=== PATIENT | female | born 1955 | race Two or more races ===

== ENCOUNTER 2017-11-28 07:31 | Outpatient (CLI) | payer OTHER ==
[~2017-11-28 07:31] MED LIST: ALLEGRA ALLERG180 MG PO; BENADRYL 25 MG PO; COUMAdin PO; Colace 100MG PO; DECADRON PO; ELAVIL PO; GILTUSS TR TAB1 EACH PO; NEURONTIN PO; NEURONTIN600 MG; NUCYNTA ER100 MG; ORPH100T PO; OSCAL D PO; OXYC1TAB9 PO; OXYCODONE HCL10 M1 PO; OXYCONTIN 20 MG PO; Protonix PO; RESTORIL15 MG; REVLIMID20 MG; SECTRAL200 MG; SYNTHROID112 MCG PO; TRAM1TAB98 PO; Temazepam PO; ZITHROMAX500 MG PO; [UNRECOGNIZED DRUG - OTHER] BC
== END 2017-11-28 07:36 | disposition home or self-care (01) ==
LOC: MRI 07:31
DX: C90.02 Multiple myeloma in relapse (principal); I95.1 Orthostatic hypotension; G90.3 Multi-system degeneration of the autonomic nervous system
CPT/HCPCS: 70553

== ENCOUNTER 2017-12-06 09:13 | Outpatient (CLI) | payer OTHER | END 2017-12-06 09:26 | disposition home or self-care (01) | LOC: SONOGRAMA 09:13 | DX: E89.0 Postprocedural hypothyroidism (principal); E04.1 Nontoxic single thyroid nodule ==

== ENCOUNTER 2018-07-05 07:28 | Outpatient (CLI) | payer OTHER | END 2018-07-05 07:39 | disposition home or self-care (01) | LOC: SONOGRAMA 07:28 | DX: N30.00 Acute cystitis without hematuria (principal); N28.1 Cyst of kidney, acquired ==

== ENCOUNTER 2018-07-05 08:39 | Outpatient (CLI) | payer OTHER | END 2018-07-05 08:53 | disposition home or self-care (01) | LOC: RAD 501 08:39 | DX: N30.00 Acute cystitis without hematuria (principal) ==

== ENCOUNTER 2018-09-20 19:17 | Inpatient (IN) | payer OTHER ==
[~2018-09-20] VITALS: Ht 175.3 cm; Wt 66.2 kg
[2018-09-20] MEDS ORDERED: DURAGESIC1 EAC1 TD (19:32)
[2018-09-20] MEDS ORDERED: LYRICA50 MG PO (19:33)
[2018-09-20] MEDS ORDERED: PROTONIX40 MG PO (19:33)
[2018-09-20] MEDS ORDERED: CYMBALTA60 MG PO (19:33)
[2018-09-20] MEDS ORDERED: NAC600 MG PO (19:34)
[2018-09-20] MEDS ORDERED: SERTRALINE HCL50 MG PO (19:34)
[2018-09-20] MEDS ORDERED: OSEL75CA PO (19:34)
[2018-09-20] MEDS ORDERED: LEVOTHYROXINE125 MCG PO (19:34)
--- NOTE | 2018-09-20 20:46 | NUR ---
SE RECIBE PTE ALERTA Y ORIENTADA EN 3 ESFERAS. PTE REFIERE INFLUENZA TIPO A. PTE PRESENTO RESULTADOS DE KATHY REALIZADO HACE VARIOS NEFF INFLUENZA A POSITIVA.
--- NOTE | 2018-09-20 21:26 | NUR ---
SE RECIBE FEMINA ALERTA EN CUARTO DE ISOLATION. SE ORIENTA SOBRE TRATAMIENTO. EN COMPANIA DE FAMILIAR. SE DUKE MUESTRAS DE LABORATORIO ORDENADAS. SE MANTIENE EN OBSERVACION POR CAMBIOS.
[2018-09-27] MEDS ORDERED: NEO/POLYMYXIN/H10 ML OT (09:02)
== END 2018-09-27 13:00 | disposition home or self-care (01) | DRG 194 ==
LOC: ER 19:17 → SURH 23:21
PROVIDERS: ADMIT Internal Medicine
PROC: 3E0F7GC Introduction of Other Therapeutic Substance into Respiratory Tract, Via Natural or Artificial Opening (ICD-10-PCS; 2018-09-20)
PROC: 8E0ZXY6 Isolation (ICD-10-PCS; 2018-09-20)
PROC: BW24ZZZ Computerized Tomography (CT Scan) of Chest and Abdomen (ICD-10-PCS; principal; 2018-09-22)
PROC: 4A033R1 Measurement of Arterial Saturation, Peripheral, Percutaneous Approach (ICD-10-PCS; 2018-09-26)
DX: J10.1 Influenza due to other identified influenza virus with other respiratory manifestations (principal); C90.02 Multiple myeloma in relapse; K21.9 Gastro-esophageal reflux disease without esophagitis; I10 Essential (primary) hypertension; E86.0 Dehydration; E87.8 Other disorders of electrolyte and fluid balance, not elsewhere classified; E87.6 Hypokalemia; J10.08 Influenza due to other identified influenza virus with other specified pneumonia

== ENCOUNTER 2019-01-09 07:45 | Outpatient (CLI) | payer OTHER ==
[~2019-01-09 07:45] MED LIST changes: +CYMBALTA60 MG PO; +DURAGESIC1 EAC1 TD; +LEVOTHYROXINE125 MCG PO; +LYRICA50 MG PO; +NAC600 MG PO; +NEO/POLYMYXIN/H10 ML OT; +OSEL75CA PO; +PROTONIX40 MG PO; +SERTRALINE HCL50 MG PO
== END 2019-01-09 07:46 | disposition home or self-care (01) ==
LOC: SONOGRAMA 07:45 → MAMO-SONO 08:15
DX: E04.1 Nontoxic single thyroid nodule (principal)

== ENCOUNTER 2019-08-30 08:36 | Outpatient (CLI) | payer OTHER | END 2019-08-30 08:42 | disposition home or self-care (01) | LOC: NUCLEAR 08:36 | DX: C90.00 Multiple myeloma not having achieved remission (principal) | CPT/HCPCS: 78816; A9552 ==

== ENCOUNTER 2019-11-09 07:37 | Outpatient (CLI) | payer OTHER | END 2019-11-09 07:58 | disposition home or self-care (01) | LOC: SONOGRAMA 07:37 | DX: E04.1 Nontoxic single thyroid nodule (principal) ==

== ENCOUNTER 2019-11-14 07:43 | Outpatient (CLI) | payer OTHER | END 2019-11-14 07:45 | disposition home or self-care (01) | LOC: NUCLEAR 07:43 | DX: M81.0 Age-related osteoporosis without current pathological fracture (principal) ==

== ENCOUNTER 2021-02-05 06:01 | Day surgery (SDC) | payer OTHER ==
[~2021-02-05 06:01] MED LIST changes: +DAFLONEX-XL 11300 MG PO; +FOLBIC TABLET1 EACH PO; +MS CONTIN30 M1 PO; +PERCOCET 10-321 EACH PO
== END 2021-02-05 11:35 | disposition home or self-care (01) ==
LOC: CIR.AMB 06:01
PROVIDERS: ATTEND Specialist
DX: C90.00 Multiple myeloma not having achieved remission (principal); Z20.822 Contact with and (suspected) exposure to COVID-19
CPT/HCPCS: 36561; C1751

== ENCOUNTER 2021-06-30 15:08 | Inpatient (IN) | payer OTHER ==
[~2021-06-30] VITALS: Ht 175.3 cm; Wt 72.6 kg
== END 2021-07-29 09:53 | disposition home or self-care (01) | DRG 552 ==
LOC: ER 15:08 → MEDJ 20:06 → SEC-K 20:06 → MEDJ 07-01 10:58 → MEDI 07-06 10:58 → MEDJ 07-18 12:30
PROVIDERS: ADMIT Internal Medicine Hematology & Oncology; ATTEND Internal Medicine Hematology & Oncology
PROC: BR3 Imaging, Axial Skeleton, Except Skull and Facial Bones, Magnetic Resonance Imaging (MRI) (ICD-10-PCS; 2021-06-30)
PROC: 8E0ZXY6 Isolation (ICD-10-PCS; 2021-06-30)
PROC: 0HBHXZX Excision of Right Upper Leg Skin, External Approach, Diagnostic (ICD-10-PCS; principal; 2021-07-06)
PROC: 0HBJXZX Excision of Left Upper Leg Skin, External Approach, Diagnostic (ICD-10-PCS; 2021-07-06)
PROC: 4A12X4Z Monitoring of Cardiac Electrical Activity, External Approach (ICD-10-PCS; 2021-07-22)
DX: M51.17 Intervertebral disc disorders with radiculopathy, lumbosacral region (principal); B02.29 Other postherpetic nervous system involvement; C90.00 Multiple myeloma not having achieved remission; B02.7 Disseminated zoster; Z20.822 Contact with and (suspected) exposure to COVID-19; M62.830 Muscle spasm of back; M48.07 Spinal stenosis, lumbosacral region; R20.2 Paresthesia of skin; E03.8 Other specified hypothyroidism; K21.9 Gastro-esophageal reflux disease without esophagitis; F41.8 Other specified anxiety disorders; L70.8 Other acne
CPT/HCPCS: 72158

== ENCOUNTER 2021-09-24 12:11 | Outpatient (CLI) | payer OTHER | END 2021-09-24 12:12 | disposition home or self-care (01) | LOC: RAD 12:11 | DX: S93.492A Sprain of other ligament of left ankle, initial encounter (principal) ==

== ENCOUNTER 2021-12-26 11:50 | Emergency (ER) | payer OTHER ==
[~2021-12-26] VITALS: Ht 175.3 cm; Wt 90.3 kg
[2021-12-26] MEDS ORDERED: SYNTHROID100 MCG (12:01)
[2021-12-26] MEDS ORDERED: DARZALEX FASPRO15 ML (12:02)
== END 2021-12-26 12:53 | disposition home or self-care (01) ==
LOC: ER 11:50
DX: S99.912A Unspecified injury of left ankle, initial encounter (principal); W18.30XA Fall on same level, unspecified, initial encounter; Y93.01 Activity, walking, marching and hiking; Y92.410 Unspecified street and highway as the place of occurrence of the external cause; S89.92XA Unspecified injury of left lower leg, initial encounter

== ENCOUNTER 2023-01-19 09:49 | Emergency (ER) | payer OTHER ==
[~2023-01-19] VITALS: Ht 175.3 cm; Wt 72.6 kg
[~2023-01-19 09:49] MED LIST changes: +DARZALEX FASPRO15 ML; +SYNTHROID100 MCG
[2023-01-19] MEDS ORDERED: ONDANSETRON HCL8 MG PO (10:00)
[2023-01-19] MEDS ORDERED: DAFLONEX-XL 11300 MG PO (10:01)
[2023-01-19] MEDS ORDERED: FENTANYL1 EAC3 TD (10:07)
[2023-01-19] MEDS ORDERED: OSEL75CA PO (15:36)
== END 2023-01-19 15:38 | disposition home or self-care (01) ==
LOC: ER 09:49
DX: J10.1 Influenza due to other identified influenza virus with other respiratory manifestations (principal); Z85.89 Personal history of malignant neoplasm of other organs and systems; Z88.6 Allergy status to analgesic agent; Z88.0 Allergy status to penicillin; Z88.8 Allergy status to other drugs, medicaments and biological substances

== ENCOUNTER 2023-01-21 07:45 | Emergency (ER) | payer OTHER ==
[~2023-01-21] VITALS: Ht 175.3 cm; Wt 72.6 kg
[~2023-01-21 07:45] MED LIST changes: +FENTANYL1 EAC3 TD; +ONDANSETRON HCL8 MG PO
== END 2023-01-21 10:46 | disposition home or self-care (01) ==
LOC: ER 07:45
DX: J10.1 Influenza due to other identified influenza virus with other respiratory manifestations (principal); E03.9 Hypothyroidism, unspecified; Z86.2 Personal history of diseases of the blood and blood-forming organs and certain disorders involving the immune mechanism; Z88.6 Allergy status to analgesic agent; Z88.0 Allergy status to penicillin; Z88.8 Allergy status to other drugs, medicaments and biological substances; J01.40 Acute pansinusitis, unspecified

== ENCOUNTER 2023-10-04 06:11 | Day surgery (SDC) | payer OTHER ==
[2023-09-30 09:18] LABS: HEMATOCRIT 35.2 % (36.0-45.00); HEMOGLOBIN 11.9 g/dL (12.0-15.00); MEAN CELL VOLUME 93.1 fL (80.00-100.00); MEAN CORPUSCULAR HEMOGLOBIN 31.4 pg (27.00-32.0); MEAN CORPUSCULAR HGB CONC 33.7 g/dl (32.0-36.0); PLATELET COUNT 324 K/uL (150-450); RED BLOOD COUNT 3.78 M/uL (4.00-6.00); RED CELL DISTRIBUTION WIDTH 15.4 % (11.5-14.5)
[2023-09-30 09:32] LABS: URINE APPEARANCE Cloudy; URINE BILIRRUBIN Negative (NEGATIVE); URINE BLOOD Trace; URINE COLOR Yellow; URINE GLUCOSE Negative (NEGATIVE); URINE LEUKOCYTE Small; URINE NITRATE Negative; URINE PROTEIN Negative (NEGATIVE); URINE UROBILINOGEN 0.2 E.U./dl
[2023-09-30 09:37] LABS: INR 0.99; PARTIAL THROMBOPLASTIN TIME 29.1 SECONDS (22.0-34.0); PROTHROMBIN TIME 10.4 SECONDS (9.0-11.5)
[2023-09-30 09:39] LABS: URINE EPITHELIAL CELLS 7.5 uL (0.0-38.8); URINE RBC 16.3 uL (0.0-20.8); URINE WBC 233.9 uL (0.0-23.2)
[2023-09-30 10:06] LABS: ALBUMIN 3.5 gm/dL (3.4-5.0); BILIRUBIN TOTAL 0.29 mg/dL (0.3-1.2); CALCIUM 9.8 mg/dL (8.5-10.1); CREATININE SERUM 1.02 mg/dL (0.55-1.02); GFR 53.73; GLOBULINA 5.3 G/DL (2.4-3.5); POTASSIUM 4.61 mEq/L (3.5-5.1); TOTAL PROTEIN 8.8 gm/dL (6.4-8.2)
[2023-09-30 11:13] LABS: URINE BACTERIA > 9821.2 uL (0.0-1933)
[~2023-10-04 06:11] MED LIST changes: +ELLIPTA; +LEVETIRACETAM 250 MG; +LIDOCAIN PATCH; +PANTOPRAZOLE SO40 M2; +SYNTHROID100 MCG PO; +XOPENEX; +ZOFRAN8 MG; +ZOVIRAX400 MG PO; +[UNRECOGNIZED DRUG - OTHER]
== END 2023-10-04 17:40 | disposition home or self-care (01) ==
LOC: CIR.AMB 06:11
PROVIDERS: ATTEND Specialist
DX: C90.00 Multiple myeloma not having achieved remission (principal); I10 Essential (primary) hypertension; Z20.822 Contact with and (suspected) exposure to COVID-19; Z88.6 Allergy status to analgesic agent; Z88.0 Allergy status to penicillin; Z88.8 Allergy status to other drugs, medicaments and biological substances